=== PATIENT | male | born 1965 | race African-American/Black ===

== ENCOUNTER 2017-07-18 01:30 | Emergency (ER) | payer OTHER, MEDICARE ==
[~2017-07-18] VITALS: Ht 167.6 cm; Wt 69.9 kg
[~2017-07-18 01:30] MED LIST: ATORVASTATIN CA20 M1 PO; ATRIPLA TABLET1 EACH PO; DIVALPROEX SOD500 M3 PO; FLOVENT HFA12 G1 INH; LEVOTHYROXINE25 MCG PO; LISINOPRIL40 M1 PO; NASONEX17 GM NASB; PRILOSEC OTC20 MG PO; TESSALON PERLE100 M1 PO
[2017-07-18 01:41] VITALS: BP 123/89
--- NOTE | 2017-07-18 02:24 | ED UPPER/LOWER EXTREMITY COMPL ---
History of Present Illness General Chief Complaint: Hand or Wrist Injury Stated Complaint: PT C/O LT HAND PAIN Source: patient Exam Limitations: no limitations Vital Signs & Intake/Output Vital Signs & Intake/Output Vital Signs Date Time Temp Pulse Resp B/P B/P Pulse O2 O2 Flow FiO2 Mean Ox Delivery Rate 07/18 0141 98.1 96 16 123/89 97 Room Air Allergies Coded Allergies: lithium (Mild, RASH 08/02/15) Reconcile Medications Atorvastatin Calcium 20 MG TABLET 1 TAB PO DAILY CHOL (Reported) Benzonatate (Tessalon Perle) 100 MG CAPSULE 1 CAP PO TID PRN cough Divalproex Sodium (Divalproex Sodium ER) 500 MG TAB.ER.24H 2 TAB PO QPM UNK ( Reported) Efavirenz/Emtricitab/Tenofovir (Atripla Tablet) 1 EACH TABLET 1 TAB PO DAILY UNK (Reported) on empty stomach Fluticasone Propionate (Flovent Hfa) 12 GM AER.W.ADAP 2 PUF INH BID PRN SOB/ URI Hydrocortisone (Ala-Isak) 2.5 % CREAM..G. 1 RHODA TOP BID PRN ITCHING 5 DAYS MAX Levothyroxine Sodium 25 MCG TABLET 1 TAB PO DAILY THYROID (Reported) Lisinopril 40 MG TABLET 1 TAB PO DAILY BP (Reported) Mometasone Furoate (Nasonex) 17 GM SPRAY.PUMP 2 SPRAY NASB DAILY nasal congestion Omeprazole (Prilosec Otc) 20 MG TCP 1 TAB PO QDAY GASTRITIS/REFLUX Triage Note: 52YO MAL ETO TRIAGE W/CO L PINKY/PALM AREA PAIN DENIES ANY INJURY. STATES "HE DRIVES ALL DAY FOR HIS JOB" Triage Nurses Notes Reviewed? yes Onset: Gradual Duration: week(s):, waxing and waning Timing: recent history Severity: mild Pain/Injury Location: Left: 3rd finger, 4th finger, 5th finger. 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 Associated Symptoms: itching HPI: 52 yo gentleman presents with itchy rash in the left palmar aspects of 3rd, 4th, 5th digits for the past several months. He notes, "It started when I was detailing a car with some serious chemicals.... 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 that's when it flared up again... I've been putting vaseline on it, and it gets a little better but not completely." He is otherwise well. Past History Travel History Traveled to [place] past 21 day No Medical History Any Pertinent Medical History? see below for history Neurological: NONE EENT: NONE Cardiovascular: hypertension, HIGH CHOL Respiratory: NONE Gastrointestinal: NONE Hepatic: NONE Renal: NONE Musculoskeletal: NONE Psychiatric: bipolar disease Endocrine: hypothyroidism Blood Disorders: HIV Other Medical Hx: hiv Surgical History Surgical History: N Psychosocial History What is your primary language Venezuelan Tobacco Use: Current Daily Use Daily Tobacco Use Amount/Type: => 5 Cigarettes daily Family History Hx Contributory? No Review of Systems Review of Systems Constitutional: Reports: no symptoms. EENTM: Reports: no symptoms. Respiratory: Reports: no symptoms. Cardiovascular: Reports: no symptoms. Gastrointestinal/Abdominal: Reports: no symptoms. Genitourinary: Reports: no symptoms. Musculoskeletal: Reports: no symptoms. Skin: Reports: no symptoms. Neurological/Psychological: Reports: no symptoms. Hematologic/Endocrine: Reports: no symptoms. Immunological: Reports: no symptoms. All Other Systems: Reviewed and Negative Physical Exam Physical Exam General Appearance: well developed/nourished, mild distress Head: atraumatic Eyes: Bilateral: normal appearance. Ears, Nose, Throat: normal pharynx, normal ENT inspection, hearing grossly normal Neck: normal inspection, supple Cardiovascular/Respiratory: regular rate/rhythm Back: normal inspection Hand Left: 3rd finger, 4th finger, 5th finger, dermatitis on left 3 4 5 fingers. no sign of infection or scabies. Skin: intact, normal color, warm/dry Lymphatic: no anterior cervical carlo Progress Differential Diagnosis: dermatitis vs scabies vs other. Plan of Care: presribed hydrocortisone... close follow up advised. Departure Departure Disposition: HOME OR SELF CARE Condition: Stable Clinical Impression Primary Impression: Dermatitis Referrals: Patient Has No Primary Care Dr (PCP/Family) Departure Forms: Customer Survey General Discharge Information Prescriptions: Current Visit Scripts Hydrocortisone (Ala-Isak) 1 RHODA TOP BID PRN ITCHING #1 TUBE 5 DAYS MAX
[2017-07-18] MEDS ORDERED: ALA-CORT30 GM TOP (02:26)
== END 2017-07-18 02:35 ==
LOC: ERH 01:30
DX: L25.9 Unspecified contact dermatitis, unspecified cause (principal)

== ENCOUNTER 2017-11-16 20:57 | Emergency (ER) | payer OTHER, MEDICARE ==
[~2017-11-16 20:57] MED LIST changes: +ALA-CORT30 GM TOP
[2017-11-16 21:16] VITALS: BP 116/73
== END 2017-11-16 22:22 | disposition admitted as inpatient to this hospital (09) ==
LOC: ERH 20:57
DX: M54.5 Low back pain (principal); V49.40XA Driver injured in collision with unspecified motor vehicles in traffic accident, initial encounter